=== PATIENT | female | born 1950 | race Caucasian/White ===

== ENCOUNTER 2018-06-22 13:13 | Inpatient (IN) | payer MEDICARE, OTHER ==
[~2018-06-22] VITALS: Ht 162.6 cm; Wt 65.6 kg
[~2018-06-22 13:13] MED LIST: ALPR.5 PO; ATOR20 PO; CIPR250 PO; LEVOCETIRIZINE D5 MG PO; LOSARTAN-HCTZ1 EAC2 PO; METO100ER PO
[2018-06-22 13:52] LABS: BASOPHILS ABSOLUTE AUTO 0.04 K/mm3 (0.00-0.23); BASOPHILS PERCENT AUTO 0 % (0-2); EOSINOPHILS ABSOLUTE AUTO 0.01 K/mm3 (0.00-0.68); EOSINOPHILS PERCENT AUTO 0 % (0-6); Hematocrit 37.6 % (33.0-51.0); Hemoglobin 12.4 g/dL (11.5-16.0); IMMATURE GRAN ABSOLUTE AUTO 0.02 K/mm3 (0.00-0.10); IMMATURE GRAN PERCENT AUTO 0 % (0-1); LYMPHOCYTES ABSOLUTE AUTO 1.37 K/mm3 (0.84-5.20); LYMPHOCYTES PERCENT AUTO 12 % (21-46); MONOCYTES ABSOLUTE AUTO 0.73 K/mm3 (0.16-1.47); MONOCYTES PERCENT AUTO 6 % (4-13); Mean Corpuscular HGB 30.6 pg (26.0-34.0); Mean Corpuscular Volume 93 fL (80-100); NEUTROPHILS ABSOLUTE AUTO 9.31 K/mm3 (1.96-9.15); NEUTROPHILS PERCENT AUTO 81 % (41-73); RDW Coefficient Variation 11.4 % (11.7-14.2); RDW Standard Deviation 38.7 fL (35.1-46.3); Red Blood Cell Count 4.05 M/mm3 (3.80-5.20); White Blood Cell Count 11.48 K/mm3 (4.00-11.30)
[2018-06-22 14:08] LABS: Alanine Aminotransfer (ALT/SGP 95 U/L (12-78); Albumin, Blood 3.4 g/dL (3.4-5.0); Albumin/Globulin Ratio 0.7 (0.8-1.8); Alk Phos 70 U/L (50-136); Anion Gap 16 mmol/L (6-16); Aspartate Aminotrans (AST/SGOT 79 U/L (12-37); Bilirubin, Total 1.1 mg/dL (0.1-1.0); Blood Urea Nitrogen 23 mg/dL (8-24); Bun/Creatinine Ratio 29.6 (12.0-20.0); CO2, Blood 21 mmol/L (21-32); Calcium, Blood 9.7 mg/dL (8.5-10.1); Chloride, Blood 100 mmol/L (98-108); Creatinine, Blood 0.78 mg/dL (0.40-1.00); Globulin, Blood 4.8 g/dL (2.2-4.0); Glomerular Filtration Rate >60 (60-); Glucose, Blood 116 mg/dL (70-99); Potassium, Blood 3.5 mmol/L (3.5-5.5); Sodium, Blood 137 mmol/L (136-145); Total Protein, Blood 8.2 g/dL (6.4-8.2)
[2018-06-22 14:33] LABS: Mean Platelet Volume 11.5 fL (9.1-12.4); Platelet Count 290 K/mm3 (150-400)
[2018-06-22 18:15] LABS: Source, Urine Clean Catch
[2018-06-22 18:25] LABS: Appearance, Urine Clear (Clear); Bilirubin, Urine Neg (Neg); Blood, Urine Neg (Neg); Color, Urine Yellow (P-Yellow); Glucose Qualitative, Urine Neg (Neg); Ketones, Urine 3+ (Neg); Leukocyte Esterase, Urine 1+ (Neg); Nitrite, Urine Neg (Neg); Protein, Urine 2+ (Neg); Urobilinogen, Urine NORM (Normal)
[2018-06-22 18:52] LABS: Bacteria Few /hpf; Red Blood Cells, Urine Rare /hpf (0-2); Squamous Epithelial Cells Few /hpf (Few)
[2018-06-22 22:23] LABS: Troponin I 0.314 ng/mL (0.000-0.040)
[2018-06-23 04:58] LABS: Hematocrit 29.2 % (33.0-51.0); Hemoglobin 9.6 g/dL (11.5-16.0); Mean Corpuscular HGB 30.4 pg (26.0-34.0); Mean Corpuscular HGB Conc 32.9 g/dL (31.5-36.5); Mean Corpuscular Volume 92 fL (80-100); Mean Platelet Volume 11.7 fL (9.1-12.4); Platelet Count 256 K/mm3 (150-400); RDW Coefficient Variation 11.5 % (11.7-14.2); RDW Standard Deviation 38.9 fL (35.1-46.3); Red Blood Cell Count 3.16 M/mm3 (3.80-5.20)
[2018-06-23 05:17] LABS: Alanine Aminotransfer (ALT/SGP 70 U/L (12-78); Albumin, Blood 2.7 g/dL (3.4-5.0); Albumin/Globulin Ratio 0.7 (0.8-1.8); Alk Phos 53 U/L (50-136); Anion Gap 13 mmol/L (6-16); Aspartate Aminotrans (AST/SGOT 48 U/L (12-37); Bilirubin, Total 0.7 mg/dL (0.1-1.0); Blood Urea Nitrogen 19 mg/dL (8-24); Bun/Creatinine Ratio 26.2 (12.0-20.0); CO2, Blood 22 mmol/L (21-32); Calcium, Blood 8.7 mg/dL (8.5-10.1); Chloride, Blood 105 mmol/L (98-108); Creatinine, Blood 0.73 mg/dL (0.40-1.00); Globulin, Blood 3.8 g/dL (2.2-4.0); Glomerular Filtration Rate >60 (60-); Glucose, Blood 109 mg/dL (70-99); Potassium, Blood 3.3 mmol/L (3.5-5.5); Sodium, Blood 140 mmol/L (136-145); Total Protein, Blood 6.5 g/dL (6.4-8.2); Troponin I 0.336 ng/mL (0.000-0.040)
[2018-06-24 06:06] LABS: Anion Gap 8 mmol/L (6-16); Blood Urea Nitrogen 15 mg/dL (8-24); Bun/Creatinine Ratio 24.4 (12.0-20.0); CO2, Blood 26 mmol/L (21-32); Calcium, Blood 8.8 mg/dL (8.5-10.1); Chloride, Blood 108 mmol/L (98-108); Creatinine, Blood 0.62 mg/dL (0.40-1.00); Glomerular Filtration Rate >60 (60-); Glucose, Blood 104 mg/dL (70-99); Potassium, Blood 3.6 mmol/L (3.5-5.5); Sodium, Blood 142 mmol/L (136-145)
[2018-06-25 05:50] LABS: Hematocrit 29.3 % (33.0-51.0); Hemoglobin 9.8 g/dL (11.5-16.0); Mean Corpuscular HGB 30.2 pg (26.0-34.0); Mean Corpuscular HGB Conc 33.4 g/dL (31.5-36.5); Mean Corpuscular Volume 90 fL (80-100); Mean Platelet Volume 11.5 fL (9.1-12.4); Platelet Count 213 K/mm3 (150-400); RDW Coefficient Variation 11.2 % (11.7-14.2); Red Blood Cell Count 3.24 M/mm3 (3.80-5.20); White Blood Cell Count 5.27 K/mm3 (4.00-11.30)
[2018-06-25 08:15] LABS: Percent Saturation 12.8 % (15.0-50.0)
[2018-06-25 11:56] LABS: Adenovirus F 40/41 Not Detected (NOT DETECT); Astrovirus Not Detected (NOT DETECT); Campylobacter Sp Not Detected (NOT DETECT); Cryptosporidium Not Detected (NOT DETECT); Cyclospora Cayetanensis Not Detected (NOT DETECT); E. Coli O157 Not Detected (NOT DETECT); Entamoeba Histolytica Not Detected (NOT DETECT); Enteroaggregative E. coli-EAEC Not Detected (NOT DETECT); Enteropathogenic E. coli-EPEC Not Detected (NOT DETECT); Enterotoxigenic E. coli-ETEC Not Detected (NOT DETECT); Giardia Lamblia Not Detected (NOT DETECT); Norovirus GI/GII Not Detected (NOT DETECT); Plesiomonas Shigelloides Not Detected (NOT DETECT); Rotavirus A Not Detected (NOT DETECT); Salmonella Sp Not Detected (NOT DETECT); Sapovirus Not Detected (NOT DETECT); Shiga Toxin-prod E. coli-STEC Not Detected (NOT DETECT); Shigella/Enteroin E. coli-EIEC Not Detected (NOT DETECT); Vibrio Cholerae Not Detected (NOT DETECT); Vibrio Sp Not Detected (NOT DETECT); Yersinia Enterocolitica Not Detected (NOT DETECT)
[2018-06-26 04:57] LABS: Hematocrit 29.9 % (33.0-51.0); Hemoglobin 9.8 g/dL (11.5-16.0); Mean Corpuscular HGB 29.8 pg (26.0-34.0); Mean Corpuscular HGB Conc 32.8 g/dL (31.5-36.5); Mean Corpuscular Volume 91 fL (80-100); Mean Platelet Volume 11.4 fL (9.1-12.4); Platelet Count 213 K/mm3 (150-400); RDW Coefficient Variation 11.2 % (11.7-14.2); RDW Standard Deviation 37.1 fL (35.1-46.3); Red Blood Cell Count 3.29 M/mm3 (3.80-5.20); White Blood Cell Count 3.75 K/mm3 (4.00-11.30)
[2018-06-27] MEDS ORDERED: ASPI81CH PO (13:57)
[2018-06-27] MEDS ORDERED: Omeprazole20 M1 PO (13:58)
[2018-06-27] MEDS ORDERED: ONDA4ODT MM (13:58)
== END 2018-06-27 15:31 | disposition home or self-care (01) | DRG 102 ==
LOC: ER 13:13 → MEDS 20:06 → ENPENDDIS 06-27 13:37 → MEDS 06-27 15:31
PROVIDERS: Emergency Medicine; Internal Medicine; Physician Assistant
PROC: 0DB68ZX Excision of Stomach, Via Natural or Artificial Opening Endoscopic, Diagnostic (ICD-10-PCS; principal; 2018-06-23)
DX: G43.A1 Cyclical vomiting, in migraine, intractable (principal); K25.4 Chronic or unspecified gastric ulcer with hemorrhage; E87.6 Hypokalemia; I10 Essential (primary) hypertension; E78.5 Hyperlipidemia, unspecified; K29.80 Duodenitis without bleeding; R19.7 Diarrhea, unspecified; D64.9 Anemia, unspecified; Z87.891 Personal history of nicotine dependence; E86.0 Dehydration; R00.0 Tachycardia, unspecified
CPT/HCPCS: 36415; 70450; 71046; 80048; 80053; 81001; 82550; 82728; 83540; 83550; 83690; 84484; 85025; 85027; 87086; 87507; 88305; 88342; 93005; 93010; 93306; 96361; 96374; 96375; 99285-25; J1200; J1650; J2405; J2765; J3010; J3480; J7030; J7120

== ENCOUNTER 2018-07-03 11:59 | Observation (INO) | payer MEDICARE, BC ==
[~2018-07-03] VITALS: Ht 162.6 cm; Wt 72.0 kg
[~2018-07-03 11:59] MED LIST changes: +ASPI81CH PO; +ONDA4ODT MM; +Omeprazole20 M1 PO
[2018-07-03 13:03] LABS: BASOPHILS ABSOLUTE AUTO 0.03 K/mm3 (0.00-0.23); BASOPHILS PERCENT AUTO 0 % (0-2); EOSINOPHILS ABSOLUTE AUTO 0.04 K/mm3 (0.00-0.68); EOSINOPHILS PERCENT AUTO 0 % (0-6); Hematocrit 38.8 % (33.0-51.0); Hemoglobin 12.6 g/dL (11.5-16.0); IMMATURE GRAN ABSOLUTE AUTO 0.03 K/mm3 (0.00-0.10); IMMATURE GRAN PERCENT AUTO 0 % (0-1); LYMPHOCYTES ABSOLUTE AUTO 1.35 K/mm3 (0.84-5.20); LYMPHOCYTES PERCENT AUTO 12 % (21-46); MONOCYTES ABSOLUTE AUTO 0.83 K/mm3 (0.16-1.47); MONOCYTES PERCENT AUTO 8 % (4-13); Mean Corpuscular HGB 29.4 pg (26.0-34.0); Mean Corpuscular HGB Conc 32.5 g/dL (31.5-36.5); Mean Corpuscular Volume 90 fL (80-100); Mean Platelet Volume 11.8 fL (9.1-12.4); NEUTROPHILS ABSOLUTE AUTO 8.71 K/mm3 (1.96-9.15); NEUTROPHILS PERCENT AUTO 79 % (41-73); Platelet Count 361 K/mm3 (150-400); RDW Coefficient Variation 11.9 % (11.7-14.2); RDW Standard Deviation 39.2 fL (35.1-46.3); Red Blood Cell Count 4.29 M/mm3 (3.80-5.20); White Blood Cell Count 10.99 K/mm3 (4.00-11.30)
[2018-07-03 13:22] LABS: Alanine Aminotransfer (ALT/SGP 68 U/L (12-78); Albumin, Blood 3.3 g/dL (3.4-5.0); Albumin/Globulin Ratio 0.7 (0.8-1.8); Alk Phos 74 U/L (50-136); Anion Gap 12 mmol/L (6-16); Aspartate Aminotrans (AST/SGOT 64 U/L (12-37); Bilirubin, Total 1.2 mg/dL (0.1-1.0); Blood Urea Nitrogen 18 mg/dL (8-24); Bun/Creatinine Ratio 20.2 (12.0-20.0); CO2, Blood 27 mmol/L (21-32); Calcium, Blood 10.2 mg/dL (8.5-10.1); Chloride, Blood 99 mmol/L (98-108); Creatinine, Blood 0.89 mg/dL (0.40-1.00); Globulin, Blood 4.8 g/dL (2.2-4.0); Glomerular Filtration Rate >60 (60-); Glucose, Blood 126 mg/dL (70-99); Potassium, Blood 3.2 mmol/L (3.5-5.5); Sodium, Blood 138 mmol/L (136-145); Total Protein, Blood 8.1 g/dL (6.4-8.2)
--- NOTE | 2018-07-03 19:40 | NUR ---
SHIFT SUMMARY: PATIENT ADMIT FROM ED THIS SHIFT. PATIENT ADMIT FOR INTRACTABLE N/V X6 WEEKS; DISCHARGE ON 06/27/18 FOR SAME. NO N/V SINCE ARRIVAL ON MEDICAL. PT A&O; CALM AND COOPERATIVE WITH CARE. CONSULT c DR MEDLEY ORDERED FOR 07/04. IV REHYDRATION. REPORT GIVEN TO ONCOMING RN.
[2018-07-03 21:42] LABS: Bilirubin, Urine Neg (Neg); Blood, Urine Neg (Neg); Glucose Qualitative, Urine Neg (Neg); Ketones, Urine 3+ (Neg); Leukocyte Esterase, Urine 1+ (Neg); Nitrite, Urine Neg (Neg); Protein, Urine 1+ (Neg); Specific Gravity, Urine 1.015 (1.003-1.022); Urobilinogen, Urine NORM (Normal)
[2018-07-03 21:47] LABS: Appearance, Urine Clear (Clear); Color, Urine Yellow (P-Yellow)
[2018-07-03 21:48] LABS: Bacteria Mod /hpf; Red Blood Cells, Urine 0-2 /hpf (0-2); Squamous Epithelial Cells Few /hpf (Few)
[2018-07-04 05:31] LABS: Anion Gap 7 mmol/L (6-16); Blood Urea Nitrogen 13 mg/dL (8-24); CO2, Blood 26 mmol/L (21-32); Calcium, Blood 8.8 mg/dL (8.5-10.1); Chloride, Blood 108 mmol/L (98-108); Creatinine, Blood 0.76 mg/dL (0.40-1.00); Glomerular Filtration Rate >60 (60-); Glucose, Blood 146 mg/dL (70-99); Potassium, Blood 3.1 mmol/L (3.5-5.5); Sodium, Blood 141 mmol/L (136-145)
--- NOTE | 2018-07-04 05:34 | NUR ---
PT NPO FOR ABD ULTRASOUND SMALL BOWEL FOLLOW THROUGH? MRI OF HEAD DUE INTRACTABLE NAUSEA. PT HAS NOT TAKEN MUCH IN ORALLY, MEDICATED X 1 WITH COMPAZINE 10 MG IV. pt HAD 1 DOSE OF 10 MEQ LIQUID POTASSIUM AND HAS IV FLUID CONTAINING KT. SHE HAD 2 K RIDERS 20 MEQ ORDERED AND CO SEVERE ARM PAIN AND SPASM WITH ADMINISTRATION . RESTARTED IV AND SAME. PT REFUSED KRIDERS DUE TO INCREASED PAIN .PT HAD DNR STATUS ORDERED BUT WHEN I WENT TO APPLY PURPLE DNR BAND PT REQUESTS FULL CODE. DR INFORMED AND CODE STATUS CHANGED. UA POSITIVE AND CULTURE PENDING. NO CO ABD PAIN. WILL HAVE GI CONSULT WITH DR MEDLEY WHO SAW HER WITH LAST HOSPITIZATION .
--- NOTE | 2018-07-04 06:42 | NUR ---
stopped iv fluid due to lt arm edema around iv site. this was second iv on my shift, iv was patent but some general edema. will assess for need powerglide.
[2018-07-04 06:47] LABS: BASOPHILS ABSOLUTE AUTO 0.02 K/mm3 (0.00-0.23); BASOPHILS PERCENT AUTO 0 % (0-2); EOSINOPHILS ABSOLUTE AUTO 0.12 K/mm3 (0.00-0.68); EOSINOPHILS PERCENT AUTO 2 % (0-6); Hematocrit 28.6 % (33.0-51.0); Hemoglobin 9.4 g/dL (11.5-16.0); IMMATURE GRAN ABSOLUTE AUTO 0.01 K/mm3 (0.00-0.10); IMMATURE GRAN PERCENT AUTO 0 % (0-1); LYMPHOCYTES ABSOLUTE AUTO 1.37 K/mm3 (0.84-5.20); LYMPHOCYTES PERCENT AUTO 23 % (21-46); MONOCYTES ABSOLUTE AUTO 0.74 K/mm3 (0.16-1.47); MONOCYTES PERCENT AUTO 12 % (4-13); Mean Corpuscular HGB 29.5 pg (26.0-34.0); Mean Corpuscular HGB Conc 32.9 g/dL (31.5-36.5); Mean Corpuscular Volume 90 fL (80-100); Mean Platelet Volume 11.4 fL (9.1-12.4); NEUTROPHILS ABSOLUTE AUTO 3.74 K/mm3 (1.96-9.15); NEUTROPHILS PERCENT AUTO 62 % (41-73); Platelet Count 226 K/mm3 (150-400); RDW Coefficient Variation 11.9 % (11.7-14.2); Red Blood Cell Count 3.19 M/mm3 (3.80-5.20)
--- NOTE | 2018-07-04 17:33 | NUR ---
SHIFT SUMMARY PATIENT A&O X4, INDEPENDENT IN THE ROOM. DENIES ANY PAIN OR SOB. RN HAS MEDICATED FOR NAUSEA WITH COMPAZINE 10MG X1 THIS SHIFT. PATIENT TOLERATING CLEAR LIQUID DIET WELL. SISTER AT THE BEDSIDE THIS AFTERNOON. PATIENT WAS UP TO THE CHAIR FOR A COUPLE OF HOURS. D5-1/2NS KCL RUNNING @ 100ML/HR PER ORDERS. ABD ULTRASOUND AND MRI OF THE HEAD DONE THIS MORNING. BED IN LOWEST POSITION, CALL LIGHT WITHIN REACH. PATIENT IS RESTING. NO ACUTE CHANGES, RN WILL CONTINUE TO MONITOR.
--- NOTE | 2018-07-05 05:19 | NUR ---
SHIFT SUMMARY PT AWAKE AT START OF SHIFT, TALKING ON CELL PHONE. DENIED NEEDS AT THAT TIME. PER SHIFT REPORT, PT ADMITTED AGAIN FOR C/O N/V; PT JUST ADMITTED FOR SAME REASON ON Jun. PT ON CL DIET, TOLERATING WELL. DENIED NAUSEA TO PRESENT. PT DID REQUEST SLEEPING PILL THIS AM AT 0400. PT TO TALK WITH MD TODAY FOR "ADDITIONAL XANAX OR SOMETHING". PT VERY WEAK, REPORTING THAT SHE HASN'T BEEN EATING FOR A MONTH. PT TO HAVE NM GASTRIC EMPTYING TODAY. INDEPENDANT IN RM TO BTHRM. DENIED PAIN AND NAUSEA. IVF'S INFUSING PER EMAR. CALL LT IN REACH.
--- NOTE | 2018-07-05 09:57 | NUR ---
RECIEVED A CALL FROM [facility]. HE SAID THAT THE ORDERED GASTRIC EMPTYING EXAM COULD NOT BE DONE TODAY. HE STATED THAT THEY USUALLY ONLY DO THEM ON WEDNESDAY BUT WOULD LEAVE A NOTE FOR MORENITA WHO WILL BE ON TOMORROW TO SEE WHAT HE CAN DO. DR. MEDLEY NOTIFIED.
--- NOTE | 2018-07-05 17:09 | NUR ---
SHIFT SUMMARY PATIENT A&O X4, INDEPENDENT IN THE ROOM. DENIES ANY PAIN, NAUSEA, OR SOB THIS SHIFT. TOLERATING CLEAR LIQUID DIET WELL. FLUIDS RUNNING PER ORDERS. UP TO CHAIR FOR A FEW HOURS THIS SHIFT. WAS VERY ANXIOUS AND WITHDRAWN AT THE BEGINNING OF THE SHIFT, DEFINITE CHANGE FROM YESTERDAY. UP TO CHAIR FOR A FEW HOURS TODAY, SISTER AT THE BEDSIDE. BED IN LOWEST POSITION, CALL LIGHT WITHIN REACH. NO ACUTE CHANGES. RN WILL CONTINUE TO MONITOR.
[2018-07-06 05:22] LABS: Hematocrit 32.4 % (33.0-51.0); Hemoglobin 10.2 g/dL (11.5-16.0); Mean Corpuscular HGB 29.6 pg (26.0-34.0); Mean Corpuscular HGB Conc 31.5 g/dL (31.5-36.5); Mean Corpuscular Volume 94 fL (80-100); Mean Platelet Volume 11.8 fL (9.1-12.4); Platelet Count 208 K/mm3 (150-400); RDW Coefficient Variation 11.9 % (11.7-14.2); RDW Standard Deviation 40.4 fL (35.1-46.3); Red Blood Cell Count 3.45 M/mm3 (3.80-5.20); White Blood Cell Count 5.44 K/mm3 (4.00-11.30)
[2018-07-06 05:47] LABS: Anion Gap 6 mmol/L (6-16); Blood Urea Nitrogen 9 mg/dL (8-24); Bun/Creatinine Ratio 12.5 (12.0-20.0); CO2, Blood 24 mmol/L (21-32); Calcium, Blood 9.2 mg/dL (8.5-10.1); Chloride, Blood 112 mmol/L (98-108); Creatinine, Blood 0.72 mg/dL (0.40-1.00); Glomerular Filtration Rate >60 (60-); Glucose, Blood 114 mg/dL (70-99); Sodium, Blood 142 mmol/L (136-145)
--- NOTE | 2018-07-06 06:33 | NUR ---
SHIFT SUMMARY PT IS 67-YEAR-OLD, A&O X 4. SHE WAS ADMITTED FOR INTRACTABLE NAUSEA & VOMITING. PT DENIED ANY NAUSEA, PAIN OR SOB DURING THE NIGHT. SHE DID APPEAR SOMEWHAT ANXIOUS, AND WAS GIVEN SCHEDULED XANAX DURING THE NIGHT. SHE ALSO REPORTED BEING UNABLE TO SLEEP DURING THE NIGHT. VITAL SIGNS STABLE. CONTINUOUS D5+1/2NS+K @ 100 ML/HR THROUGH THE NIGHT. NO OTHER ACUTE CHANGES IN PT CONDITION DURING THE NIGHT. WILL CONTINUE TO MONITOR AND TREAT PER EMAR UNTIL HAND OFF TO DAY SHIFT.
--- NOTE | 2018-07-06 08:00 | NUR ---
PT PLEASANT COOP A.O. DENIES PAIN. H/R REG, NO MURMER NOTED. NO TELE. LUNGS DIM T/O. RESP EASY, UNLABORED. ON R/A. BT X4 LAST BM YEST. SOFT. VOIDS PER BATHROOM INDEPENDANT IN ROOM. BED IN LOW POSITION, CALL LITE IN REACH, CALLS APROP.
--- NOTE | 2018-07-06 14:24 | NUR ---
CALLED DR GALINDO GORDON D/C SINCE NO STUDY AVAIL UNTIL 07/27. DR DORA GORDON D/C TODAY.
[2018-07-06] MEDS ORDERED: COMPAZINE10 MG PO (16:01)
--- NOTE | 2018-07-06 17:13 | NUR ---
IV PULLED INTACT. NO TELE. DISCHARGE REVIEWD WITH PT. PT WHEELED OUT DOOR BY VASU. 1989
== END 2018-07-06 17:30 | disposition home or self-care (01) ==
LOC: ER 11:59 → MEDS 12:00 → ER 15:21 → MEDS 15:21
PROVIDERS: Emergency Medicine; Internal Medicine; ADMIT Hospitalist
DX: R11.2 Nausea with vomiting, unspecified (principal); I10 Essential (primary) hypertension; E78.5 Hyperlipidemia, unspecified; R74.0 Nonspecific elevation of levels of transaminase and lactic acid dehydrogenase [LDH]; D64.9 Anemia, unspecified; E87.6 Hypokalemia; F41.9 Anxiety disorder, unspecified; D63.8 Anemia in other chronic diseases classified elsewhere; F32.9 Major depressive disorder, single episode, unspecified; I34.1 Nonrheumatic mitral (valve) prolapse; Z79.82 Long term (current) use of aspirin; Z87.440 Personal history of urinary (tract) infections; Z88.0 Allergy status to penicillin; Z88.8 Allergy status to other drugs, medicaments and biological substances; Z79.899 Other long term (current) drug therapy; Z87.891 Personal history of nicotine dependence
CPT/HCPCS: 36415; 70553; 76700; 80048; 80053; 81001; 83690; 85025; 85027; 87086; 96361; 96374; 96375; 96376; 99284-25; A9577; C9113; G0378; J0780; J2060; J3475; J3480; J7030

== ENCOUNTER 2018-07-12 17:01 | Emergency (ER) | payer MEDICARE, BC ==
[~2018-07-12] VITALS: Ht 162.6 cm; Wt 65.3 kg
[~2018-07-12 17:01] MED LIST changes: +COMPAZINE10 MG PO
[2018-07-12 18:14] LABS: BASOPHILS ABSOLUTE AUTO 0.06 K/mm3 (0.00-0.23); BASOPHILS PERCENT AUTO 1 % (0-2); EOSINOPHILS ABSOLUTE AUTO 0.03 K/mm3 (0.00-0.68); EOSINOPHILS PERCENT AUTO 0 % (0-6); Hemoglobin 11.9 g/dL (11.5-16.0); IMMATURE GRAN ABSOLUTE AUTO 0.03 K/mm3 (0.00-0.10); IMMATURE GRAN PERCENT AUTO 0 % (0-1); LYMPHOCYTES ABSOLUTE AUTO 1.35 K/mm3 (0.84-5.20); LYMPHOCYTES PERCENT AUTO 13 % (21-46); MONOCYTES ABSOLUTE AUTO 0.74 K/mm3 (0.16-1.47); MONOCYTES PERCENT AUTO 7 % (4-13); Mean Corpuscular HGB 29.1 pg (26.0-34.0); Mean Corpuscular HGB Conc 33.1 g/dL (31.5-36.5); Mean Platelet Volume 11.7 fL (9.1-12.4); NEUTROPHILS ABSOLUTE AUTO 8.45 K/mm3 (1.96-9.15); NEUTROPHILS PERCENT AUTO 79 % (41-73); Platelet Count 344 K/mm3 (150-400); RDW Coefficient Variation 12.6 % (11.7-14.2); Red Blood Cell Count 4.09 M/mm3 (3.80-5.20); White Blood Cell Count 10.66 K/mm3 (4.00-11.30)
[2018-07-12 18:34] LABS: Albumin, Blood 3.4 g/dL (3.4-5.0); Albumin/Globulin Ratio 0.7 (0.8-1.8); Bilirubin, Total 1.3 mg/dL (0.1-1.0); Bun/Creatinine Ratio 12.4 (12.0-20.0); Calcium, Blood 9.6 mg/dL (8.5-10.1); Creatinine, Blood 1.37 mg/dL (0.40-1.00); Globulin, Blood 4.6 g/dL (2.2-4.0); Potassium, Blood 3.3 mmol/L (3.5-5.5)
[2018-07-12 18:48] LABS: Mean Corpuscular Volume 88 fL (80-100)
[2018-07-13] MEDS ORDERED: Potassium20 MEQ/11 PO (00:05)
[2018-07-13] MEDS ORDERED: METO10 PO (00:05)
== END 2018-07-13 00:42 | disposition home or self-care (01) ==
LOC: ER 17:01
PROVIDERS: Physician Assistant
DX: K31.84 Gastroparesis (principal); E87.6 Hypokalemia; Z88.0 Allergy status to penicillin; Z88.8 Allergy status to other drugs, medicaments and biological substances; Z79.899 Other long term (current) drug therapy; Z79.82 Long term (current) use of aspirin; I10 Essential (primary) hypertension
CPT/HCPCS: 36415; 80053; 83690; 85025; 96361; 96374; 96375; 99284-25; J2405; J2765; J3010; J7030

== ENCOUNTER → 2021-12-19 | Outpatient (CLI) | payer MEDICARE, BC ==
[~2021-12-19] MED LIST changes: +METO10 PO; +Potassium20 MEQ/11 PO
== END | disposition home or self-care (01) ==
LOC: LAB SHORT 13:30 → LAB 13:30
DX: R30.0 Dysuria (principal)
CPT/HCPCS: 87086

== ENCOUNTER 2022-04-15 17:08 | Emergency (ER) | payer MEDICARE, BC ==
[~2022-04-15] VITALS: Ht 165.1 cm; Wt 74.8 kg
[~2022-04-15 17:08] MED LIST changes: +OMEP20ER PO; -Omeprazole20 M1 PO
[2022-04-15 18:02] LABS: BASOPHILS ABSOLUTE AUTO 0.06 K/mm3 (0.00-0.23); BASOPHILS PERCENT AUTO 1 % (0-2); EOSINOPHILS PERCENT AUTO 2 % (0-6); Hematocrit 45.8 % (33.0-51.0); Hemoglobin 15.6 g/dL (11.5-16.0); IMMATURE GRAN ABSOLUTE AUTO 0.02 K/mm3 (0.00-0.10); IMMATURE GRAN PERCENT AUTO 0 % (0-1); LYMPHOCYTES ABSOLUTE AUTO 1.94 K/mm3 (0.84-5.20); LYMPHOCYTES PERCENT AUTO 29 % (21-46); MONOCYTES ABSOLUTE AUTO 0.32 K/mm3 (0.16-1.47); MONOCYTES PERCENT AUTO 5 % (4-13); Mean Corpuscular HGB 31.5 pg (26.0-34.0); Mean Corpuscular HGB Conc 34.1 g/dL (31.5-36.5); Mean Corpuscular Volume 93 fL (80-100); Mean Platelet Volume 9.8 fL (9.1-12.4); NEUTROPHILS ABSOLUTE AUTO 4.18 K/mm3 (1.96-9.15); NEUTROPHILS PERCENT AUTO 63 % (41-73); Platelet Count 297 K/mm3 (150-400); RDW Coefficient Variation 12.3 % (11.7-14.2); Red Blood Cell Count 4.95 M/mm3 (3.80-5.20); White Blood Cell Count 6.62 K/mm3 (4.00-11.30)
[2022-04-15 18:28] LABS: Albumin, Blood 4.1 g/dL (3.4-5.0); Albumin/Globulin Ratio 1.2 (0.8-1.8); Bilirubin, Total 0.8 mg/dL (0.1-1.0); Bun/Creatinine Ratio 10.3 (12.0-20.0); Calcium, Blood 9.6 mg/dL (8.5-10.1); Creatinine, Blood 1.26 mg/dL (0.40-1.00); Globulin, Blood 3.5 g/dL (2.2-4.0); Magnesium, Blood 1.6 mg/dL (1.6-2.4); Potassium, Blood 4.1 mmol/L (3.5-5.5); Total Protein, Blood 7.6 g/dL (6.4-8.2)
[2022-04-15] MEDS ORDERED: VENL75ER PO (19:17)
[2022-04-15] MEDS ORDERED: ATORVASTATIN CA20 MG PO (19:18)
[2022-04-15] MEDS ORDERED: METHI10 PO (19:18)
== END 2022-04-15 22:34 | disposition home or self-care (01) ==
LOC: ER 17:08
PROVIDERS: Physician Assistant
DX: I10 Essential (primary) hypertension (principal); R51.9 Headache, unspecified; Z79.82 Long term (current) use of aspirin; Z79.899 Other long term (current) drug therapy; Z87.891 Personal history of nicotine dependence
CPT/HCPCS: 36415; 70450; 80053; 83735; 85025; 99284-25; A9270

== ENCOUNTER 2024-02-23 09:59 | Observation (INO) | payer MEDICARE, BC ==
[~2024-02-23] VITALS: Ht 162.6 cm; Wt 74.8 kg
[~2024-02-23 09:59] MED LIST changes: +ATORVASTATIN CA20 MG PO; +METHIMAZOLE5 M1 PO; +VENL75ER PO
[2024-02-23 11:30] LABS: Albumin, Blood 3.5 g/dL (3.4-5.0); Bilirubin, Total 0.6 mg/dL (0.1-1.0); Bun/Creatinine Ratio 25.4 (12.0-20.0); Calcium, Blood 8.8 mg/dL (8.5-10.1); Creatinine, Blood 1.38 mg/dL (0.40-1.00); Globulin, Blood 3.5 g/dL (2.2-4.0); Potassium, Blood 4.6 mmol/L (3.5-5.5)
[2024-02-23 11:38] LABS: Magnesium, Blood 1.6 mg/dL (1.6-2.4); Thyroid Stimulating Hormone 0.074 uIU/mL (0.360-4.800)
[2024-02-23 14:41] LABS: BASOPHILS ABSOLUTE AUTO 0.06 K/mm3 (0.00-0.23); BASOPHILS PERCENT AUTO 1 % (0-2); EOSINOPHILS ABSOLUTE AUTO 0.07 K/mm3 (0.00-0.68); EOSINOPHILS PERCENT AUTO 1 % (0-6); Hematocrit 41.7 % (33.0-51.0); Hemoglobin 13.7 g/dL (11.5-16.0); IMMATURE GRAN ABSOLUTE AUTO 0.02 K/mm3 (0.00-0.10); IMMATURE GRAN PERCENT AUTO 0 % (0-1); LYMPHOCYTES ABSOLUTE AUTO 1.59 K/mm3 (0.84-5.20); LYMPHOCYTES PERCENT AUTO 22 % (21-46); MONOCYTES ABSOLUTE AUTO 0.39 K/mm3 (0.16-1.47); MONOCYTES PERCENT AUTO 5 % (4-13); Mean Corpuscular HGB 30.1 pg (26.0-34.0); Mean Corpuscular HGB Conc 32.9 g/dL (31.5-36.5); Mean Corpuscular Volume 92 fL (80-100); Mean Platelet Volume 10.2 fL (9.1-12.4); NEUTROPHILS ABSOLUTE AUTO 5.17 K/mm3 (1.96-9.15); NEUTROPHILS PERCENT AUTO 71 % (41-73); Platelet Count 234 K/mm3 (150-400); RDW Standard Deviation 47.1 fL (35.1-46.3); Red Blood Cell Count 4.55 M/mm3 (3.80-5.20)
[2024-02-23] MEDS ORDERED: Ondansetron HCl 2 MG / ML 2ML Vial IV PRN (14:50)
[2024-02-23] MEDS ORDERED: Mag Hydrox/Al Hydrox/Simeth 18 ML,Lidocaine 2% Viscous Soln 9 ML,Atropine/Scopalam/Hyos... PO ONE (15:05)
[2024-02-23] MEDS ORDERED: ALPRAZolam 0.5 MG Tab PO PRN (15:35)
[2024-02-23] MEDS ORDERED: ALPR.5 PO (15:35)
[2024-02-23] MEDS ORDERED: ATORVASTATIN CA80 M1 PO (15:36)
[2024-02-23] MEDS ORDERED: LOSARTAN POTAS100 M1 PO (15:37)
[2024-02-23] MEDS ORDERED: METHIMAZOLE5 M1 PO (15:38)
[2024-02-23] MEDS ORDERED: METO10 PO ×2 (15:39→17:13)
[2024-02-23] MEDS ORDERED: METO100ER PO (15:40)
[2024-02-23] MEDS ORDERED: OMEP20ER PO (15:41)
[2024-02-23] MEDS ORDERED: Pantoprazole Sodium 40 MG Injection IV SCH (16:30)
[2024-02-23] MEDS ORDERED: Metoclopramide HCl 10 MG Tab PO SCH (16:30)
--- NOTE | 2024-02-23 18:30 | NUR ---
ADMISSION PATIENT ADMITTED TO MEDICAL FLOOR. PATIENT ARRIVED BY GURNEY AND TRANSFERED TO BED WITHOUT REPORT. PATIENT DENIES ANY CP BUT BP 184/117. ATTEMPTED TO CALL NURSE BACK TO GET REPORT. NURSE NOT AVAILABLE. NO ORDERS FOR HTN. DR. CALLEJAS NOTIFIED. ORDERS OBTAINED FOR HYDRALAZINE. HYDRALAZINE GIVEN CREPE LAMINATOR OPERATOR TO REPEAT BLOOD PRESSURE.
[2024-02-23 18:36] VITALS: BP 185/117
[2024-02-23 18:49] VITALS: BP 182/100
[2024-02-23] MEDS ORDERED: HydrALAZINE HCl 20 MG / ML 1ML Vial IV PRN (18:50)
[2024-02-23 20:57] VITALS: BP 153/71
[2024-02-24 03:03] VITALS: BP 202/78
[2024-02-24 03:42] VITALS: BP 141/79
[2024-02-24 05:11] LABS: Hematocrit 42.6 % (33.0-51.0); Hemoglobin 14.2 g/dL (11.5-16.0); Mean Corpuscular HGB 30.6 pg (26.0-34.0); Mean Corpuscular HGB Conc 33.3 g/dL (31.5-36.5); Mean Corpuscular Volume 92 fL (80-100); Mean Platelet Volume 10.6 fL (9.1-12.4); Platelet Count 232 K/mm3 (150-400); RDW Coefficient Variation 14.2 % (11.7-14.2); RDW Standard Deviation 46.5 fL (35.1-46.3); Red Blood Cell Count 4.64 M/mm3 (3.80-5.20); White Blood Cell Count 7.94 K/mm3 (4.00-11.30)
[2024-02-24] MEDS ORDERED: Metoprolol Succinate 50 MG TABCR PO SCH ×2 (05:15→09:00)
[2024-02-24 05:39] LABS: Albumin, Blood 3.4 g/dL (3.4-5.0); Bilirubin, Total 1.2 mg/dL (0.1-1.0); Bun/Creatinine Ratio 19.1 (12.0-20.0); Calcium, Blood 8.9 mg/dL (8.5-10.1); Creatinine, Blood 1.15 mg/dL (0.40-1.00); Globulin, Blood 3.4 g/dL (2.2-4.0); Potassium, Blood 4.1 mmol/L (3.5-5.5); Total Protein, Blood 6.8 g/dL (6.4-8.2)
[2024-02-24 07:29] VITALS: BP 144/85
--- NOTE | 2024-02-24 07:31 | NUR ---
SHIFT SUMMARY PT HYPRTENSIVE RESPONDS WELL TO 10 MG HYDRALAZINE BUT DID NEED TO GIVE PRN X2 DOSES T/O SHIFT. THIS AM COMPLAINT EVALUATION OFFICER CALLED TO REPORT HR HAD BEEN FREQUENTLY TOUCHING UP TO 130'S. DR. HINOJOSA WAS NOTIFIED AND ORDERED TO GIVE SCHEDULED DOSE OF METOPROLOL EARLY. PT REPORTED SHE DID NOT TAKE THIS DAY PRIOR. PT RESPIRATIONS T/O NIGHT TACHY, PT REPORTS ANXIETY. DAILY PRN XANAX GIVEN WITH REPORTED RELIEF WHICH ALSO REDUCED RESPIRATIONS. PT CALLS APPROPRIATELY, STAND-BY ASSIST TO BATHROOM. TELE A-FLUTTER T/O SHIFT. BILAT IV'S WNL BUT DOES NEED TO BE FLUSHED SLOWLY. CALL LIGHT IN REACH.
[2024-02-24] MEDS ORDERED: Losartan Potassium 50 MG Tab PO SCH (09:00)
[2024-02-24] MEDS ORDERED: Enoxaparin 40 MG/0.4 ML SYR SC SCH (09:00)
[2024-02-24] MEDS ORDERED: methIMAzole 5 MG TABLET PO SCH (09:00)
--- NOTE | 2024-02-24 10:40 | NUR ---
Pt laying in bed with eyes closed, wakes easily, takes po meds without diff, a/ox4, denies any chest pain durring the night or this am, lungs are clear t/o, resp even and unlabored, no cough noted, hrr, no edema noted, ppp+1, cap refill < 3 sec, vs stable, afebrile, piv x2, sites are clear and patenet, btx4, abd flat soft nontender, voids without diff, skin c/w/d, maew, abby, call light in reach.
[2024-02-24] MEDS ORDERED: Furosemide 10 MG/ML 4ML Vial IV ONE (13:05)
[2024-02-24 15:02] VITALS: BP 147/77
--- NOTE | 2024-02-24 18:40 | NUR ---
pt heart rate jumps up to 150's when she gets up to the bathroom, recovers in a timely manner, has slept most of the day when not being disturbed, no acute changes this shift, call light in reach.
[2024-02-24 19:52] VITALS: BP 97/63
[2024-02-25 04:15] VITALS: BP 160/91
--- NOTE | 2024-02-25 04:52 | NUR ---
SHIFT SUMMARY PATIENT IS ALERT AND ORIENTED TO ALL. DNR CODE STATUS. PATIENT IS INDEPENDENT IN ROOM. PLEASANT AND COOPERATIVE WITH CARE. HEART RATE INCREASES WITH EXERTION. PATIENT REPORTS ANXIETY AT START OF SHIFT AND REQUESTS ALPRAZOLAM, WHICH IS GIVEN PER EMAR. PATIENT CALLS APPROPRIATELY. BED IS IN LOWEST POSITION AND CALL LIGHT IS WITHIN REACH. THIS RN WILL REPORT ALL INFORMATION TO ONCOMING AM NURSE. NO ACUTE CHANGES DURING SHIFT.
[2024-02-25 06:23] LABS: Albumin/Globulin Ratio 0.9 (0.8-1.8); Bilirubin, Total 1.1 mg/dL (0.1-1.0); Bun/Creatinine Ratio 15.7 (12.0-20.0); Calcium, Blood 8.6 mg/dL (8.5-10.1); Creatinine, Blood 1.4 mg/dL (0.40-1.00); Globulin, Blood 3.3 g/dL (2.2-4.0); Magnesium, Blood 1.6 mg/dL (1.6-2.4); Phosphorus, Blood 4.2 mg/dL (2.5-4.9); Potassium, Blood 3.6 mmol/L (3.5-5.5); Total Protein, Blood 6.3 g/dL (6.4-8.2)
[2024-02-25 07:34] VITALS: BP 156/101
[2024-02-25] MEDS ORDERED: HydrALAZINE HCl 10 MG Tab PO SCH (10:00)
[2024-02-25] MEDS ORDERED: ASPI81CH PO (11:48)
[2024-02-25] MEDS ORDERED: ELIQUIS5 M2 PO (11:52)
--- NOTE | 2024-02-25 13:57 | NUR ---
DISCHARGE PT DISCHARGED HOME FROM UNIT AT APROX 1356. PT GIVEN WRITTEN AND VERBAL DC INSTRUCTIONS AND VERBALIZED UNDERSTANDING. IV REMOVED. WC TO PRIVATE VEHICLE
[2024-02-26 11:41] LABS: HEPATITIS A ANTIBODY, IGM Negative (Negative); HEPATITIS B CORE ANTIBODY, IGM Negative (Negative); HEPATITIS B SURFACE ANTIGEN Negative (Negative); HEPATITIS C AB CIA INTERP Negative (Negative); HEPATITIS C ANTIBODY CIA INDEX 0.05 IV
== END 2024-02-25 13:56 | disposition home or self-care (01) ==
LOC: ER 09:59 → MEDS 10:00 → ENPENDDIS 02-25 10:59 → MEDS 02-25 13:56
PROVIDERS: Emergency Medicine; ADMIT Internal Medicine
DX: R07.89 Other chest pain (principal); I10 Essential (primary) hypertension; E78.5 Hyperlipidemia, unspecified; K31.84 Gastroparesis; I48.91 Unspecified atrial fibrillation; E03.9 Hypothyroidism, unspecified; K21.9 Gastro-esophageal reflux disease without esophagitis; Z66 Do not resuscitate; Z79.82 Long term (current) use of aspirin; Z79.899 Other long term (current) drug therapy; Z87.891 Personal history of nicotine dependence; Z88.0 Allergy status to penicillin; Z88.8 Allergy status to other drugs, medicaments and biological substances
CPT/HCPCS: 36415; 71046; 76705; 80053; 80074; 83735; 83880; 84100; 84439; 84443; 84481; 84484; 85025; 85027; 93005; 93010; 93306; 96372; 96374; 96375; 96376; 97116; 97161; 99285-25; A9270; G0378; J0360; J1650; J1940; J2470

== ENCOUNTER 2024-05-01 07:18 | Observation (INO) | payer MEDICARE, BC ==
[~2024-05-01] VITALS: Ht 162.6 cm; Wt 72.6 kg
[~2024-05-01 07:18] MED LIST changes: +ATORVASTATIN CA80 M1 PO; +ELIQUIS5 M2 PO; +LOSARTAN POTAS100 M1 PO
[2024-05-01 08:04] LABS: BASOPHILS ABSOLUTE AUTO 0.05 K/mm3 (0.00-0.23); BASOPHILS PERCENT AUTO 1 % (0-2); EOSINOPHILS ABSOLUTE AUTO 0.08 K/mm3 (0.00-0.68); EOSINOPHILS PERCENT AUTO 1 % (0-6); Hematocrit 41.8 % (33.0-51.0); Hemoglobin 14.1 g/dL (11.5-16.0); IMMATURE GRAN ABSOLUTE AUTO 0.02 K/mm3 (0.00-0.10); IMMATURE GRAN PERCENT AUTO 0 % (0-1); LYMPHOCYTES ABSOLUTE AUTO 1.32 K/mm3 (0.84-5.20); LYMPHOCYTES PERCENT AUTO 17 % (21-46); MONOCYTES ABSOLUTE AUTO 0.47 K/mm3 (0.16-1.47); MONOCYTES PERCENT AUTO 6 % (4-13); Mean Corpuscular HGB 30.5 pg (26.0-34.0); Mean Corpuscular HGB Conc 33.7 g/dL (31.5-36.5); Mean Corpuscular Volume 91 fL (80-100); Mean Platelet Volume 10.9 fL (9.1-12.4); NEUTROPHILS ABSOLUTE AUTO 5.86 K/mm3 (1.96-9.15); NEUTROPHILS PERCENT AUTO 75 % (41-73); Platelet Count 283 K/mm3 (150-400); RDW Coefficient Variation 13.3 % (11.7-14.2); RDW Standard Deviation 43.4 fL (35.1-46.3); Red Blood Cell Count 4.62 M/mm3 (3.80-5.20)
[2024-05-01 08:25] LABS: Albumin, Blood 3.2 g/dL (3.4-5.0); Bilirubin, Total 0.9 mg/dL (0.1-1.0); Bun/Creatinine Ratio 12.2 (12.0-20.0); Calcium, Blood 9.1 mg/dL (8.5-10.1); Creatinine, Blood 2.05 mg/dL (0.40-1.00); Globulin, Blood 3.3 g/dL (2.2-4.0); Potassium, Blood 4.1 mmol/L (3.5-5.5); Total Protein, Blood 6.5 g/dL (6.4-8.2)
[2024-05-01] MEDS ORDERED: Magnesium Sulf 2 GM/Water 50ML 50 ML IV ONE ×2 (08:45→22:45)
[2024-05-01] MEDS ORDERED: NS 1,000 ML IV SCH (08:45)
[2024-05-01] MEDS ORDERED: FLU VACC TS2024-25(6MOS UP)/PF 45 MCG/0.5 ML SYRINGE IM ONE (13:35)
[2024-05-01] MEDS ORDERED: Magnesium Sulf 2 GM/Water 50ML 50 ML IV SCH (14:00)
[2024-05-01] MEDS ORDERED: Lactated Ringer's 1,000 ML IV SCH (16:30)
[2024-05-01 17:37] LABS: Source, Urine Clean Catch
[2024-05-01 17:42] LABS: Appearance, Urine Clear (Clear); Bilirubin, Urine Neg (Neg); Blood, Urine Neg (Neg); Color, Urine Yellow (P-Yellow); Glucose Qualitative, Urine Neg (Neg); Ketones, Urine Neg (Neg); Leukocyte Esterase, Urine Neg (Neg); Nitrite, Urine Neg (Neg); Protein, Urine 1+ (Neg); Specific Gravity, Urine 1.015 (1.003-1.022); Urobilinogen, Urine NORM (Normal)
[2024-05-01 17:47] VITALS: BP 156/84
[2024-05-01 19:29] VITALS: BP 151/68
--- NOTE | 2024-05-01 20:11 | NUR ---
END OF SHIFT SUMMARY: A&Ox4. PLEASANT AND COOPERATIVE WITH CARE. CALLS APPROPRIATELY AND IS ABLE TO ADVOCATE NEEDS EFFECTIVELY. CONTINENT OF BOWEL AND BLADDER. AMBULATES INDEPENDENTLY. MEDS WHOLE WITH FLUIDS. NO TELE. NO C/O PAIN OR DISCOMFORT. BED IN LOWEST POSITION. CALL LIGHT WITHIN REACH. ALL NEEDS MET. REPORT TO ONCOMING NURSE.
[2024-05-01] MEDS ORDERED: Apixaban 5 MG Tab PO SCH (21:00)
[2024-05-01] MEDS ORDERED: ALPRAZolam 0.5 MG Tab PO PRN (22:10)
[2024-05-02 02:43] VITALS: BP 174/106
[2024-05-02 03:27] VITALS: BP 149/88
--- NOTE | 2024-05-02 05:33 | NUR ---
ADMITTED 05/01/24: RULE OUT ACS. AAOX4. SBA TO BR. EDUCATION PROVIDED ON [facility], PT DECLINED TO TAKE UNTIL CARDIOLOGITS APPT IN 2 WEEKS. DYSPNEA WITH AMUBLATION. REQUESTED HOME MEDICATION, XANEX 0.5MG @ HS, ORDER REC'D.
[2024-05-02 06:22] LABS: BASOPHILS ABSOLUTE AUTO 0.03 K/mm3 (0.00-0.23); BASOPHILS PERCENT AUTO 0 % (0-2); EOSINOPHILS ABSOLUTE AUTO 0.09 K/mm3 (0.00-0.68); EOSINOPHILS PERCENT AUTO 1 % (0-6); Hematocrit 41.2 % (33.0-51.0); Hemoglobin 13.5 g/dL (11.5-16.0); IMMATURE GRAN ABSOLUTE AUTO 0.02 K/mm3 (0.00-0.10); IMMATURE GRAN PERCENT AUTO 0 % (0-1); LYMPHOCYTES PERCENT AUTO 18 % (21-46); MONOCYTES ABSOLUTE AUTO 0.42 K/mm3 (0.16-1.47); MONOCYTES PERCENT AUTO 6 % (4-13); Mean Corpuscular HGB Conc 32.8 g/dL (31.5-36.5); Mean Corpuscular Volume 92 fL (80-100); Mean Platelet Volume 10.5 fL (9.1-12.4); NEUTROPHILS ABSOLUTE AUTO 5.33 K/mm3 (1.96-9.15); NEUTROPHILS PERCENT AUTO 74 % (41-73); Platelet Count 232 K/mm3 (150-400); RDW Coefficient Variation 13.5 % (11.7-14.2); RDW Standard Deviation 44.6 fL (35.1-46.3); White Blood Cell Count 7.19 K/mm3 (4.00-11.30)
[2024-05-02 06:48] LABS: Albumin, Blood 2.8 g/dL (3.4-5.0); Anion Gap 13 mmol/L (3-11); Blood Urea Nitrogen 16 mg/dL (8-24); CO2, Blood 21 mmol/L (21-32); Calcium, Blood 8.6 mg/dL (8.5-10.1); Chloride, Blood 108 mmol/L (98-108); Creatinine, Blood 1.14 mg/dL (0.40-1.00); Glomerular Filtration Rate 51 (60-); Glucose, Blood 108 mg/dL (70-99); Magnesium, Blood 2.1 mg/dL (1.6-2.4); Phosphorus, Blood 3.4 mg/dL (2.5-4.9); Sodium, Blood 138 mmol/L (136-145)
[2024-05-02 07:16] VITALS: BP 152/102
[2024-05-02] MEDS ORDERED: Lactated Ringer's 1,000 ML IV SCH (08:50)
[2024-05-02] MEDS ORDERED: Omeprazole 20 MG CapCR PO SCH (09:00)
[2024-05-02] MEDS ORDERED: Methimazole 10 MG Tab PO SCH (09:00)
[2024-05-02] MEDS ORDERED: Metoprolol Succinate 50 MG TABCR PO SCH (09:00)
[2024-05-02] MEDS ORDERED: Aspirin 81 MG Chew PO SCH (09:00)
[2024-05-02] MEDS ORDERED: Losartan Potassium 50 MG Tab PO SCH (09:00)
[2024-05-02] MEDS ORDERED: Metoclopramide HCl 10 MG Tab PO SCH (09:00)
[2024-05-02] MEDS ORDERED: methIMAzole 5 MG TABLET PO SCH (09:12)
[2024-05-02] MEDS ORDERED: JARDIANCE10 MG PO (13:07)
[2024-05-02 13:48] LABS: Bun/Creatinine Ratio 15.2 (12.0-20.0); Calcium, Blood 9.2 mg/dL (8.5-10.1); Creatinine, Blood 1.05 mg/dL (0.40-1.00); Potassium, Blood 4.5 mmol/L (3.5-5.5)
--- NOTE | 2024-05-02 17:37 | NUR ---
DISCHARGE SUMMARY: A&Ox4. PLEASANT AND COOPERATIVE WITH CARE. CALLS APPROPRIATELY AND IS ABLE TO ADVOCATE NEEDS EFFECTIVELY. CONTINENT OF BOWEL AND BLADDER. AMBULATES INDEPENDENTLY WTIHIN THE ROOM. LBM TODAY. MEDS WHOLE WITH FLUIDS. NO C/O PAIN OR DISCOMFORT. NO ACUTE CONCERNS THROUGHOUT SHIFT PRIOR TO DC. MEDICATIONS FAXED TO [facility] ON [address]. INSTRUCTED TO FOLLOW-UP WITH PCP ORDERED. LEFT FLOOR AT WITH ALL BELONGINGS AND DISCHARGE PACKET BY SENIOR MARKETING ANALYST. TRANSPORTATION PROVIDED BY SISTER.
[2024-05-02] MEDS ORDERED: Atorvastatin 10 MG Tab PO SCH (21:00)
== END 2024-05-02 14:46 | disposition home or self-care (01) ==
LOC: ER 07:18 → ERHOLD 07:19 → MEDS 17:32
PROVIDERS: Emergency Medicine; ADMIT Family Medicine
DX: N17.9 Acute kidney failure, unspecified (principal); I13.0 Hypertensive heart and chronic kidney disease with heart failure and stage 1 through stage 4 chronic kidney disease, or unspecified chronic kidney disease; N18.31 Chronic kidney disease, stage 3a; I50.32 Chronic diastolic (congestive) heart failure; J90 Pleural effusion, not elsewhere classified; I48.91 Unspecified atrial fibrillation; E83.42 Hypomagnesemia; E78.5 Hyperlipidemia, unspecified; E05.90 Thyrotoxicosis, unspecified without thyrotoxic crisis or storm; K21.9 Gastro-esophageal reflux disease without esophagitis; Z87.891 Personal history of nicotine dependence; Z88.0 Allergy status to penicillin; Z88.1 Allergy status to other antibiotic agents; Z79.82 Long term (current) use of aspirin; Z79.01 Long term (current) use of anticoagulants; Z79.899 Other long term (current) drug therapy; Z98.51 Tubal ligation status; Z90.710 Acquired absence of both cervix and uterus
CPT/HCPCS: 36415; 71046; 80048; 80053; 80069; 83735; 83880; 84100; 84484; 85025; 93005; 93010; 96361; 96365; 96366; 99285-25; A9270; G0378; J3475; J7030; J7120

== ENCOUNTER 2025-03-13 17:06 | Emergency (ER) | payer MEDICARE, BC ==
[~2025-03-13] VITALS: Ht 160 cm; Wt 60.3 kg
[~2025-03-13 17:06] MED LIST changes: +JARDIANCE10 MG PO
[2025-03-13 17:07] VITALS: BP 163/85
[2025-03-13] MEDS ORDERED: FentaNYL Citrate 50 MCG/ML 2 ML Injection IV PRN (17:25)
[2025-03-13] MEDS ORDERED: Ondansetron HCl 2 MG / ML 2ML Vial IV ONE (17:25)
[2025-03-13 17:57] LABS: BASOPHILS ABSOLUTE AUTO 0.04 K/mm3 (0.00-0.23); BASOPHILS PERCENT AUTO 1 % (0-2); EOSINOPHILS ABSOLUTE AUTO 0.07 K/mm3 (0.00-0.68); EOSINOPHILS PERCENT AUTO 1 % (0-6); Hematocrit 43.1 % (33.0-51.0); Hemoglobin 14.5 g/dL (11.5-16.0); IMMATURE GRAN ABSOLUTE AUTO 0.01 K/mm3 (0.00-0.10); IMMATURE GRAN PERCENT AUTO 0 % (0-1); LYMPHOCYTES ABSOLUTE AUTO 2.47 K/mm3 (0.84-5.20); LYMPHOCYTES PERCENT AUTO 37 % (21-46); MONOCYTES ABSOLUTE AUTO 0.40 K/mm3 (0.16-1.47); MONOCYTES PERCENT AUTO 6 % (4-13); Mean Corpuscular HGB Conc 33.6 g/dL (31.5-36.5); Mean Corpuscular Volume 94 fL (80-100); NEUTROPHILS ABSOLUTE AUTO 3.69 K/mm3 (1.96-9.15); NEUTROPHILS PERCENT AUTO 55 % (41-73); NRBC ABSOLUTE 0.00 K/mm3 (0.00-0.02); NRBC Auto 0.0 /100 WBC (0.0-0.2); Platelet Count 242 K/mm3 (150-400); RDW Coefficient Variation 13.1 % (11.7-14.2); RDW Standard Deviation 44.7 fL (35.1-46.3)
[2025-03-13 18:13] LABS: Alanine Aminotransfer (ALT/SGP 40 U/L (12-78); Albumin, Blood 4.0 g/dL (3.4-5.0); Albumin/Globulin Ratio 1.1 (0.8-1.8); Anion Gap 8 mmol/L (3-11); Aspartate Aminotrans (AST/SGOT 34 U/L (12-37); Bilirubin, Total 0.9 mg/dL (0.1-1.0); Blood Urea Nitrogen 36 mg/dL (8-24); CO2, Blood 30 mmol/L (21-32); Calcium, Blood 9.5 mg/dL (8.5-10.1); Chloride, Blood 101 mmol/L (98-108); Creatinine, Blood 1.61 mg/dL (0.40-1.00); Ethanol (Alcohol), Blood, Med <3 mg/dL; Globulin, Blood 3.5 g/dL (2.2-4.0); Glucose, Blood 121 mg/dL (70-99); Potassium, Blood 4.4 mmol/L (3.5-5.5); Sodium, Blood 135 mmol/L (136-145); Total Protein, Blood 7.5 g/dL (6.4-8.2)
[2025-03-13] MEDS ORDERED: NS 1,000 ML IV ONE (20:46)
[2025-03-13] MEDS ORDERED: Ketorolac Tromethamine 15mg Vial IV ONE (21:15)
[2025-03-14] MEDS ORDERED: NS 1,000 ML IV SCH (03:45)
== END 2025-03-13 21:20 | disposition home or self-care (01) ==
LOC: ER 17:06
PROVIDERS: Emergency Medicine
DX: S82.142A Displaced bicondylar fracture of left tibia, initial encounter for closed fracture (principal); S82.492A Other fracture of shaft of left fibula, initial encounter for closed fracture; I12.9 Hypertensive chronic kidney disease with stage 1 through stage 4 chronic kidney disease, or unspecified chronic kidney disease; N18.9 Chronic kidney disease, unspecified; E87.1 Hypo-osmolality and hyponatremia; W19.XXXA Unspecified fall, initial encounter; Z88.0 Allergy status to penicillin; Z88.8 Allergy status to other drugs, medicaments and biological substances; Z79.82 Long term (current) use of aspirin; Z79.01 Long term (current) use of anticoagulants; Z79.899 Other long term (current) drug therapy; Z87.891 Personal history of nicotine dependence
CPT/HCPCS: 29505; 70450; 71260; 72125; 73560-LT; 73590; 74177; 80053; 80320; 85025; 86850; 86900; 86901; 93005; 93010; 96374-59; 96375-59; 96376-59; 99285-25; J1885; J2405; J3010; J7030; Q9967